=== PATIENT | female | born 1995 | race Caucasian/White ===

== ENCOUNTER 2021-06-07 05:21 | Inpatient (IN) ==
[2021-06-07] MEDS ORDERED: OXYTOCIN/LR 20 UNIT/1,000 ML BAG IV SCH (05:30)
[2021-06-07] MEDS ORDERED: TRANEXAMIC ACID 1,000 MG in SODIUM CHLORIDE 0.9% 100 ML IV PRN (05:30)
[2021-06-07] MEDS ORDERED: METHYLERGONOVINE 0.2 MG/1 ML AMP IM PRN (05:30)
[2021-06-07] MEDS ORDERED: CARBOPROST TROMETHAMINE 250 MCG/ML AMP IM PRN (05:30)
[2021-06-07] MEDS ORDERED: ACETAMINOPHEN 325 MG TABLET PO PRN (05:30)
[2021-06-07] MEDS ORDERED: BUTORPHANOL 1 MG/ML VIAL IV PRN (05:30)
[2021-06-07] MEDS ORDERED: ONDANSETRON 4 MG/2 ML VIAL IV PRN (05:30)
[2021-06-07] MEDS ORDERED: OXYTOCIN/LR 20 UNIT/1,000 ML BAG IV ONE (05:30)
[2021-06-07] MEDS ORDERED: MEPERIDINE 50 MG/1 ML VIAL IV PRN (05:30)
[2021-06-07] MEDS ORDERED: LACTATED RINGERS 500 ML IV PRN (05:30)
[2021-06-07] MEDS ORDERED: miSOPROStoL 200 MCG TABLET RECTAL PRN (05:30)
[2021-06-07] MEDS ORDERED: BUTORPHANOL 2 MG/ML VIAL IV PRN (05:30)
[2021-06-07] MEDS: LACTATED RINGERS 1,000 ML IV SCH ×2 (05:50→07:48)
[2021-06-07 06:15] LABS: Basophils # 0.1 10*3/uL (0.0-0.2); Basophils % 0.4 % (0.0-0.8); Eosinophils # 0.2 10*3/uL (0.0-0.87); Eosinophils % 1.3 % (0.00-10.9); Hematocrit 28.9 VOL% (35.7-47.0); Hemoglobin 9.4 GM/DL (12.0-16.0); Immature Granulocytes % 1.1 %; Immature Granulocytes Absolute 0.18 #; Lymphocytes # 2.2 10*3/uL (1.4-4.0); Lymphocytes % 14.1 % (21.3-54.2); Mean Corpuscular HGB Conc 32.5 GM/DL (32-36); Mean Corpuscular Volume 83.8 FL (87-102); Mean Platelet Volume 9.9 FL (9.6-12.0); Monocytes # 1.1 10*3/uL (0.11-0.8); Monocytes % 7.1 % (1.7-12.7); Platelet Count 475 T/CUMM (130-400); Red Blood Count 3.45 MC/CUMM (3.8-5.5); Red Cell Distribution Width 13.2 % (9.3-17.3); White Blood Count 15.8 T/CUMM (4-12)
[2021-06-07 06:41] LABS: Alanine Aminotransferase 9 U/L (13-56); Albumin 2.6 G/DL (3.4-5.0); Alkaline Phosphatase 365 U/L (45-117); Aspartate Amino Transferase 12 U/L (0-37); Bilirubin,Total < 0.39 MG/DL (0.20-1.00); Blood Urea Nitrogen 4 MG/DL (7-18); Calcium 8.5 MG/DL (8.5-10.1); Carbon Dioxide 19 MMOL/L (21-32); Chloride 111 MMOL/L (98-107); Estimated Glom Filtration Rate 150 ML/MIN; Glucose 83 MG/DL (74-106); Osmolality,Calculated 276.3 MOS/KG (273-304); Potassium 3.5 MMOL/L (3.5-5.1); Sodium 141 MMOL/L (136-145); Total Protein 7.1 G/DL (6.4-8.2)
[2021-06-07] MEDS ORDERED: ePHEDrine 50 MG/ML VIAL IV PRN (06:57)
[2021-06-07] MEDS ORDERED: diphenhydrAMINE 50 MG/1 ML VIAL IV PRN ×2 (06:57)
[2021-06-07] MEDS ORDERED: hydrOXYzine HCL 25 MG/1 ML VIAL IM PRN (06:57)
[2021-06-07] MEDS ORDERED: PROMETHAZINE 25 MG/1 ML VIAL IM ONE (06:57)
[2021-06-07] MEDS ORDERED: FAMOTIDINE 20 MG/2 ML VIAL IV ONE ×2 (06:57→07:01)
[2021-06-07] MEDS ORDERED: NALOXONE 0.4 MG/ML VIAL IV PRN (06:57)
[2021-06-07] MEDS ORDERED: LACTATED RINGERS 1,000 ML IV ONE (06:57)
[2021-06-07] MEDS ORDERED: CITRIC ACID/SODIUM CITRATE 30 ML UDCUP PO ONE (06:57)
[2021-06-07] MEDS ORDERED: fentaNYL 2 MCG/ROPIV 0.2% EPID 100 ML EPIDURAL SCH (07:00)
[2021-06-07] MEDS ORDERED: ePHEDrine 50 MG/ML VIAL ONE (07:01)
[2021-06-07 09:25] LABS: Bilirubin,Urine Negative (Negative); Blood, Urine Negative (Negative); Glucose,Urine (UA) Negative (Negative); Ketones,Urine Negative (Negative); Mucus,Urine Occasional /LPF (Occasional); Nitrite,Urine Negative (Negative); Protein,Urine Negative (Negative); RBC,Urine 1 /HPF (0-4); Urine Appearance Clear (Clear); Urine Color Yellow (Yellow); Urine Specific Gravity 1.015 (1.001-1.035); Urine Urobilinogen 0.2 eU/dL (<2.0)
[2021-06-07] MEDS ORDERED: TRANEXAMIC ACID 1,000 MG/10 ML VIAL ONE (12:31)
[2021-06-07] MEDS ORDERED: miSOPROStoL 200 MCG TABLET ONE (12:31)
[2021-06-07] MEDS ORDERED: CARBOPROST TROMETHAMINE 250 MCG/ML AMP IM ONE (12:32)
[2021-06-07] MEDS ORDERED: METHYLERGONOVINE 0.2 MG/1 ML AMP ONE (12:32)
[2021-06-07] MEDS ORDERED: SODIUM CHLORIDE 0.9% 0 ML IV ONE (12:32)
[2021-06-07 13:56] LABS: Cord Arterial Blood HCO3 21.6 MMOL/L
[2021-06-07 14:00] LABS: Cord Venous Blood HCO3 21.6 MMOL/L; Cord Venous Blood PCO2 45.3 MMHG
[2021-06-07] MEDS ORDERED: oxyCODONE/ACETAMINOPHEN 5-325 MG TABLET PO PRN ×2 (19:21)
[2021-06-07] MEDS ORDERED: IBUPROFEN 800 MG TABLET PO PRN (19:23)
[2021-06-07] MEDS: DOCUSATE SODIUM 100 MG CAPSULE PO SCH (20:37)
[2021-06-07] MEDS ORDERED: BENZOCAINE 20%/MENTHOL 0.5% SPRAY 56 GM CAN TOP PRN (20:52)
[2021-06-08 06:05] LABS: Basophils # 0.1 10*3/uL (0.0-0.2); Basophils % 0.4 % (0.0-0.8); Eosinophils # 0.2 10*3/uL (0.0-0.87); Eosinophils % 0.9 % (0.00-10.9); Hematocrit 26.6 VOL% (35.7-47.0); Hemoglobin 8.5 GM/DL (12.0-16.0); Immature Granulocytes % 0.8 %; Immature Granulocytes Absolute 0.15 #; Lymphocytes # 2.5 10*3/uL (1.4-4.0); Lymphocytes % 13.6 % (21.3-54.2); Mean Corpuscular Volume 85.3 FL (87-102); Mean Platelet Volume 10.3 FL (9.6-12.0); Monocytes # 1.1 10*3/uL (0.11-0.8); Neutrophils % 78.3 % (38.7-73.9); Platelet Count 417 T/CUMM (130-400); Red Blood Count 3.12 MC/CUMM (3.8-5.5); Red Cell Distribution Width 13.2 % (9.3-17.3); White Blood Count 18.3 T/CUMM (4-12)
[2021-06-08] MEDS: DOCUSATE SODIUM 100 MG CAPSULE PO SCH ×2 (09:05→20:02)
[2021-06-08] MEDS ORDERED: RHO(D) IMMUNE GLOBULIN 300 MCG SYRINGE IM ONE (09:14)
[2021-06-08] MEDS ORDERED: MEASLES/MUMPS/RUBELLA VACCINE 0.5 ML VIAL SUBCUT ONE (09:14)
[2021-06-08] MEDS ORDERED: DIPH/TET/ACEL PERT BOOSTER VACCINE 0.5 ML VIAL IM ONE (09:14)
[2021-06-08] MEDS ORDERED: oxyCODONE/ACETAMINOPHEN 5-325 MG TABLET PO PRN ×2 (09:14)
[2021-06-08] MEDS ORDERED: BISACODYL 10 MG SUPP RECTAL PRN (09:14)
[2021-06-08] MEDS ORDERED: BENZOCAINE 20%/MENTHOL 0.5% SPRAY 56 GM CAN TOP PRN (09:14)
[2021-06-08] MEDS ORDERED: ONDANSETRON 4 MG/2 ML VIAL IV PRN (09:14)
[2021-06-08] MEDS ORDERED: HYDROCORTISONE 2.5% RECTAL CREAM 30 GM TUBE TOP PRN (09:14)
[2021-06-08] MEDS ORDERED: LANOLIN 50% CREAM 0.3 OZ TUBE TOP PRN (09:14)
[2021-06-08] MEDS ORDERED: WITCH HAZEL PADS 100/JAR TOP PRN (09:14)
[2021-06-08] MEDS ORDERED: OXYTOCIN/LR 20 UNIT/1,000 ML BAG IV ONE (09:14)
[2021-06-08] MEDS ORDERED: ACETAMINOPHEN 325 MG TABLET PO PRN (09:14)
[2021-06-08] MEDS: IBUPROFEN 800 MG TABLET PO PRN (20:01)
[2021-06-08] MEDS ORDERED: DOCUSATE SODIUM 100 MG CAPSULE PO SCH (21:00)
[2021-06-08] MEDS: IRON (CARBONYL)/VIT C/B12/FA TABLET PO SCH (21:11)
[2021-06-08 22:23] LABS: Barbiturates Screen,Urine Negative (Negative); Benzodiazepines Screen,Urine Negative (Negative); Cannabinoid Screen,Urine Negative (Negative); Opiate Screen,Urine Negative (Negative); Phencyclidine Screen,Urine Negative (Negative)
[2021-06-09] MEDS: IBUPROFEN 800 MG TABLET PO PRN (05:02)
[2021-06-09 06:08] LABS: Basophils % 0.3 % (0.0-0.8); Eosinophils # 0.3 10*3/uL (0.0-0.87); Eosinophils % 1.9 % (0.00-10.9); Hematocrit 24.3 VOL% (35.7-47.0); Hemoglobin 7.6 GM/DL (12.0-16.0); Immature Granulocytes % 0.7 %; Lymphocytes # 3.1 10*3/uL (1.4-4.0); Lymphocytes % 22.4 % (21.3-54.2); Mean Corpuscular HGB Conc 31.3 GM/DL (32-36); Mean Corpuscular Volume 86.2 FL (87-102); Monocytes # 0.8 10*3/uL (0.11-0.8); Monocytes % 5.4 % (1.7-12.7); Neutrophils % 69.3 % (38.7-73.9); Platelet Count 393 T/CUMM (130-400); Red Blood Count 2.82 MC/CUMM (3.8-5.5); Red Cell Distribution Width 13.2 % (9.3-17.3); White Blood Count 13.9 T/CUMM (4-12)
[2021-06-09 07:49] VITALS: BP 107/63
[2021-06-09] MEDS: IRON (CARBONYL)/VIT C/B12/FA TABLET PO SCH (08:36)
[2021-06-09] MEDS: DOCUSATE SODIUM 100 MG CAPSULE PO SCH (08:36)
== END 2021-06-09 11:40 | disposition home or self-care (01) | DRG 560 ==
LOC: N.LD 05:21 → N.OB 17:05
PROVIDERS: ADMIT Specialist; ATTEND Specialist